=== PATIENT | female | born 1995 | race African-American/Black ===

== ENCOUNTER 2017-09-28 19:51 | Emergency (ER) | payer OTHER ==
[2017-09-28 19:55] VITALS: BP 126/61
--- NOTE | 2017-09-28 20:18 | PHYS DOC ---
Adult General Chief Complaint Chief Complaint: VAGINAL BLEEDING HPI HPI Patient is a 22 year old female who presents with complaint of vaginal bleeding during . Patient is proximal a 7 weeks with last menstrual period August 05, 2017. Patient states that over the past 2 weeks she has had intermittent spotting, however she started to develop bright red blood spotting over the past 2 days with associated cramping. Patient states that she had a previous miscarriage at 4 weeks gestation. Patient is currently following with a physician through [facility]. Patient states that she has had nausea and vomiting and has had decreased oral intake which she attributes to first trimester . Denies any fevers, shortness of breath , or chest pain. Patient denies any abnormal discharge. Review of Systems Review of Systems Constitutional: Denies fever or chills [] Eyes: Denies change in visual acuity, redness, or eye pain [] HENT: Denies nasal congestion or sore throat [] Respiratory: Denies cough or shortness of breath [] Cardiovascular: Denies chest pain or edema[] GI: Nausea, vomiting, denies bloody stools or diarrhea [] : Vaginal bleeding, pelvic cramping[] Musculoskeletal: Denies back pain or joint pain [] Integument: Denies rash or skin lesions [] Neurologic: Denies headache, focal weakness or sensory changes [] All other systems were reviewed and found to be within normal limits, except as documented in this note. Current Medications Current Medications Current Medications Medications (Trade) Dose Ordered Sig/Sierra Start Time Stop Time Status Last Admin Dose Admin Sodium Chloride 1,000 ml @ 1,000 mls/hr Q1H 09/28/17 20:01 09/28/17 21:00 UNV Physical Exam Physical Exam Constitutional: Alert, afebrile, no acute distress. [] HENT: Normocephalic, atraumatic, bilateral external ears normal, oropharynx moist, no oral exudates, nose normal. [] Eyes: PERRLA, EOMI, conjunctiva normal, no discharge. [] Neck: Normal range of motion, no tenderness, supple, no stridor. [] Cardiovascular:Heart rate regular rhythm, no murmur [] Lungs & Thorax: Bilateral breath sounds clear to auscultation [] Abdomen: Bowel sounds normal, soft, no tenderness, no masses, no pulsatile masses. Pelvic: Normal external exam, scant amount of red blood at the cervical os, small amount of yellow purulent discharge in vaginal canal, cervical os is closed, no cervical motion tenderness, midline tenderness on bimanual exam, no adnexal tenderness.[] Skin: Warm, dry, no erythema, no rash. [] Back: No tenderness, no CVA tenderness. [] Extremities: No tenderness, no cyanosis, no clubbing, ROM intact, no edema. [] Neurologic: Alert and oriented X 3, normal motor function, normal sensory function, no focal deficits noted. [] Current Patient Data Vital Signs Vital Signs Date Time Temp Pulse Resp B/P (MAP) Pulse Ox O2 Delivery O2 Flow Rate FiO2 09/28/17 19:55 98.0 61 16 100 Room Air Lab Results Laboratory Tests Test 09/28/17 20:20 White Blood Count 5.7 x10^3/uL Red Blood Count 4.34 x10^6/uL Hemoglobin 13.2 g/dL Hematocrit 38.3 % Mean Corpuscular Volume 88 fL Mean Corpuscular Hemoglobin 30 pg Mean Corpuscular Hemoglobin Concent 35 g/dL Red Cell Distribution Width 13.3 % Platelet Count 227 x10^3/uL Neutrophils (%) (Auto) 60 % Lymphocytes (%) (Auto) 32 % Monocytes (%) (Auto) 7 % Eosinophils (%) (Auto) 1 % Basophils (%) (Auto) 1 % Neutrophils # (Auto) 3.4 x10^3uL Lymphocytes # (Auto) 1.8 x10^3/uL Monocytes # (Auto) 0.4 x10^3/uL Eosinophils # (Auto) 0.1 x10^3/uL Basophils # (Auto) 0.0 x10^3/uL Maternal Serum HCG Beta Subunit 281299 mIU/mL Sodium Level 136 mmol/L Potassium Level 3.5 mmol/L Chloride Level 101 mmol/L Carbon Dioxide Level 28 mmol/L Anion Gap 7 Blood Urea Nitrogen 5 mg/dL Creatinine 0.7 mg/dL Estimated GFR (Cockcroft-Gault) 126.6 Glucose Level 83 mg/dL Calcium Level 9.3 mg/dL Magnesium Level 1.9 mg/dL Total Bilirubin 0.8 mg/dL Direct Bilirubin 0.1 mg/dL Aspartate Amino Transf (AST/SGOT) 14 U/L Alanine Aminotransferase (ALT/SGPT) 16 U/L Alkaline Phosphatase 71 U/L Total Protein 8.0 g/dL Albumin 3.6 g/dL Current Medications Medications (Trade) Dose Ordered Sig/Sierra Route PRN Reason Start Time Stop Time Status Last Admin Dose Admin Sodium Chloride 1,000 ml @ 1,000 mls/hr Q1H IV 09/28/17 21:00 09/28/17 21:59 09/28/17 21:00 Ceftriaxone Sodium (Rocephin Im) 250 mg 1X ONCE IM 09/28/17 21:00 09/28/17 21:01 DC 09/28/17 21:20 Metoclopramide HCl (Reglan Vial) 10 mg 1X ONCE IV 09/28/17 21:00 09/28/17 21:01 DC 09/28/17 21:19 Azithromycin (Zithromax) 1,000 mg 1X ONCE PO 09/28/17 21:00 09/28/17 21:01 DC 09/28/17 21:20 EKG EKG Not performed[] Radiology/Procedures Radiology/Procedures Limited transabdominal bedside ultrasound performed and interpreted by myself: Intrauterine , visualized pole, heart rate 145 bpm, small subchorionic hemorrhage, no adnexal masses[] Course & Med Decision Making Course & Med Decision Making Pertinent Labs and Imaging studies reviewed. (See chart for details) Patient was given IV fluids and Reglan in the emergency department. Due to possibility of presence of abnormal vaginal discharge, the patient was administered Rocephin and azithromycin in the emergency department. Instructed patient to follow-up with gonorrhea and chlamydia cultures and stated if they were positive she would need to inform any sexual partners that they would need to be tested and treated as well. The patient was discharged with prescription for MetroGel for treatment of bacterial vaginosis. Advised follow-up with OB doctor in the next 3 days for reevaluation and repeat quantitative hCG testing. Advised return to emergency department for any worsening symptoms. Patient was understanding and agreement with treatment plan.[] Dragon Disclaimer Dragon Disclaimer This electronic medical record was generated, in whole or in part, using a voice recognition dictation system. Departure Departure: Impression: Primary Impression: Threatened miscarriage Additional Impression: Bacterial vaginosis Disposition: HOME, SELF-CARE Condition: IMPROVED Referrals: EMMANUEL MARTINEZ PA-C (PCP) Patient Instructions: Threatened Miscarriage Additional Instructions: Your quantitative hCG level today was 131,396. You will need to follow-up with your OB doctor in 3 days to have this rechecked. Return to the emergency department for any worsening symptoms. Scripts Metronidazole (METROGEL-VAGINAL) 70 Gm Gel.w.appl 1 APPFUL [facility], #70 GM Prov: МАРИЯ RODGERS MD 09/28/17 Problem Qualifiers МАРИЯ RODGERS MD Sep 28, 2017 20:18
[2017-09-28 20:50] LABS: BASO % 1 % (0-3); EOS # 0.1 x10^3/uL (0.0-0.7); EOS % 1 % (0-3); HEMATOCRIT 38.3 % (36.0-47.0); HEMOGLOBIN 13.2 g/dL (12.0-15.5); LYMPH # 1.8 x10^3/uL (1.0-4.8); LYMPH % 32 % (24-48); MEAN CORPUSCULAR HEMOGLOBIN 30 pg (25-35); MEAN CORPUSCULAR HGB CONC 35 g/dL (31-37); MEAN CORPUSCULAR VOLUME 88 fL (79-100); MONO # 0.4 x10^3/uL (0.0-1.1); MONO % 7 % (0-9); NEUT # 3.4 x10^3uL (1.8-7.7); NEUT % 60 % (31-73); PLATELET COUNT 227 x10^3/uL (140-400); RED BLOOD COUNT 4.34 x10^6/uL (3.50-5.40); RED CELL DISTRIBUTION WIDTH 13.3 % (11.5-14.5); WHITE BLOOD COUNT 5.7 x10^3/uL (4.0-11.0)
[2017-09-28] MEDS ORDERED: AZITHROMYCIN 250 MG TABLET. PO ONE (21:00)
[2017-09-28] MEDS ORDERED: IV NORMAL SALINE 1,000ML 1,000 ML IV SCH (21:00)
[2017-09-28] MEDS ORDERED: METOCLOPRAMIDE HCL 10 MG/2 ML VIAL. IV ONE (21:00)
[2017-09-28] MEDS ORDERED: cefTRIAXone IM 250 MG VIAL IM ONE (21:00)
[2017-09-28 21:02] LABS: ALBUMIN 3.6 g/dL (3.4-5.0); CALCIUM 9.3 mg/dL (8.5-10.1); CREATININE 0.7 mg/dL (0.6-1.0); DIRECT BILIRUBIN 0.1 mg/dL (0.0-0.2); GFR 126.6; MAGNESIUM 1.9 mg/dL (1.8-2.4); POTASSIUM 3.5 mmol/L (3.5-5.1); TOTAL BILIRUBIN 0.8 mg/dL (0.2-1.0)
[2017-09-28] MEDS ORDERED: METR70GE14 VG (21:57)
[2017-09-28 22:13] LABS: BACTERIA,URINE MANY /HPF (0-FEW); BILIRUBIN,URINE NEG (NEG); CLARITY,URINE HAZY; COLOR,URINE YELLOW; GLUCOSE,URINE NEG (NEG); NITRITE,URINE POS (NEG); RBC,URINE RARE /HPF (0-2); SQUAMOUS EPITHELIAL CELL,UR FEW /LPF; UROBILINOGEN,URINE 1 mg/dL (0.2 mg/dL)
[2017-09-30 15:08] LABS: CHLAMYDIA PROBE Negative (Negative)
== END 2017-09-28 22:08 | disposition home or self-care (01) ==
LOC: ER 19:51
DX: O20.0 Threatened abortion (principal); O21.9 Vomiting of pregnancy, unspecified; O23.591 Infection of other part of genital tract in pregnancy, first trimester; N76.0 Acute vaginitis; B96.89 Other specified bacterial agents as the cause of diseases classified elsewhere; Z3A.01 Less than 8 weeks gestation of pregnancy
CPT/HCPCS: 36415; 80048; 80076; 81001; 83735; 84702; 85025; 86850; 86900; 86901; 87086; 87491; 87591; 96361; 96372; 96374; 99285; J0456; J0696; J2765; Q0111; J7030

== ENCOUNTER 2017-11-09 10:33 | Emergency (ER) | payer OTHER ==
[~2017-11-09] VITALS: Ht 157.5 cm; Wt 56.7 kg
[~2017-11-09 10:33] MED LIST: METR70GE14 VG
[2017-11-09 11:29] LABS: BACTERIA,URINE MOD /HPF (0-FEW); BILIRUBIN,URINE NEG (NEG); CLARITY,URINE HAZY; COLOR,URINE YELLOW; GLUCOSE,URINE NEG (NEG); NITRITE,URINE NEG (NEG); RBC,URINE RARE /HPF (0-2); SQUAMOUS EPITHELIAL CELL,UR MANY /LPF; UROBILINOGEN,URINE 0.2 mg/dL (0.2 mg/dL); WBC,URINE OCC /HPF (0-4)
[2017-11-09 11:30] LABS: AMORPHOUS SEDIMENT,UR PRESENT /HPF
[2017-11-09 12:14] VITALS: BP 122/65
--- NOTE | 2017-11-09 12:41 | RAD ---
Early OB ultrasound History: Pelvic pain. Comparison: None. Technique: Transabdominal imaging was performed. Findings: Single live intrauterine is identified with gestational sac and fetus seen. No subchorionic hemorrhage is identified. Gestational sac appears regular. Embryonic heart motion is 150 bpm. Mean crown-rump length is 7.10 cm corresponding to 13 weeks 2 days. BPD is 2.14 cm corresponding to 13 weeks 3 days. HC is 8.17 cm, corresponding to 13 weeks 4 days. FL is 1.06 cm corresponding to 13 weeks 1 day. Average ultrasound age is 13 weeks 3 days. Estimated date of delivery is May 14, 2018. Cervical length is 3.76 cm. Right ovary measures 5.1 x 2.3 x 2.4 cm. Impression: 1. Single live intrauterine . Average ultrasound age is 13 weeks 3 days. Estimated date of delivery is May 14, 2018. Electronically signed by: Lopez Farley MD (11/09/2017 12:37 PM) [email or web address]
--- NOTE | 2017-11-09 17:09 | ED.ADGEN ---
Past History Past Medical History: No Pertinent History Past Surgical History: No Surgical History Alcohol Use: None Drug Use: None Adult General Chief Complaint Chief Complaint Suprapubic pain [facility] HPI Patient is a 22-year-old -Filipino female G1, P0, estimated 15 weeks gestation who presents with suprapubic pain, cramping. Pain is described as sharp, intermittent and nonradiating. This radiated is 2. Is worse with position change. No nausea vomiting fever chills or sweats. No right lower quadrant pain, tenderness, flank pain, urinary frequency urgency or dysuria. No hematuria. No vaginal discharge, vaginal bleeding, fluid leak or pain. Reports significant constipation. Patient took an enema prior to ED arrival with some relief of symptoms. No other acute symptoms or complaints.] Review of Systems Review of Systems ROS as per HPI. All other systems were reviewed and found to be within normal limits, except as documented in this note. Allergies Allergies Allergies Coded Allergies Type Severity Reaction Last Updated Verified No Known Drug Allergies 09/28/17 No Physical Exam Physical Exam Constitutional: Well developed, well nourished, no acute distress. [] HENT: Normocephalic, atraumatic, bilateral external ears normal, oropharynx moist, nose normal. [] Eyes: PERRLA, EOMI, conjunctiva normal. [] Neck: Normal range of motion. [] Cardiovascular:Heart rate regular rhythm, no murmur [] Lungs & Thorax: Bilateral breath sounds clear to auscultation [] Abdomen: Bowel sounds normal, soft, rapid abdomen, mild suprapubic pain, tenderness. No right lower quadrant pain or tenderness.. [] Skin: Warm, dry. [] Back: No tenderness. [] Extremities: No tenderness, no cyanosis, no clubbing, ROM intact, no edema. [] Neurologic: Alert and oriented X 3, normal motor function, normal sensory function, no focal deficits noted. [] Psychologic: Affect normal, judgement normal, mood normal. [] Current Patient Data Vital Signs Vital Signs Date Time Temp Pulse Resp B/P (MAP) Pulse Ox O2 Delivery O2 Flow Rate FiO2 11/09/17 12:14 60 16 122/65 (84) 98 Room Air 11/09/17 10:55 98.5 Lab Results Laboratory Tests Test 11/09/17 11:10 Urine Collection Type Unknown Urine Color Yellow Urine Clarity Hazy Urine pH 6.0 Urine Specific [place] 1.025 Urine Protein Neg (NEG-TRACE) Urine Glucose (UA) Neg mg/dL (NEG) Urine Ketones (Stick) Neg mg/dL (NEG) Urine Blood Neg (NEG) Urine Nitrite Neg (NEG) Urine Bilirubin Neg (NEG) Urine Urobilinogen Dipstick 0.2 mg/dL (0.2 mg/dL) Urine Leukocyte Esterase Neg (NEG) Urine RBC Rare /HPF (0-2) Urine WBC Occ /HPF (0-4) Urine Squamous Epithelial Cells Many /LPF Urine Amorphous Sediment Present /HPF Urine Bacteria Mod /HPF (0-FEW) Urine Mucus Slight /LPF EKG EKG [] Radiology/Procedures Radiology/Procedures [OB US: Viable IUP] Course & Med Decision Making Course & Med Decision Making Pertinent Labs and Imaging studies reviewed. (See chart for details) [Please, mild, ultrasound reassuring. Discussed with patient possibility of early appendicitis. Return precautions reviewed. Will treat constipation with OB /HOT PACKER follow-up. Patient verbalizes understanding agreement with discharge instructions.] Final Impression Final Impression [1. lower abdominal pain 2. Second trimester ] Dragon Disclaimer Dragon Disclaimer This electronic medical record was generated, in whole or in part, using a voice recognition dictation system. DORON PICHARDO DO Nov 09, 2017 17:09
== END 2017-11-09 12:15 | disposition home or self-care (01) ==
LOC: ER 10:33
DX: O26.892 Other specified pregnancy related conditions, second trimester (principal); R10.30 Lower abdominal pain, unspecified; Z3A.15 15 weeks gestation of pregnancy
CPT/HCPCS: 76801; 81001; 87086; 99285-25

== ENCOUNTER 2017-12-20 21:51 | Emergency (ER) | payer OTHER ==
[~2017-12-20] VITALS: Ht 154.9 cm; Wt 61.4 kg
[2017-12-20] MEDS: IV NORMAL SALINE 1,000ML 1,000 ML IV ONE (22:35)
[2017-12-20] MEDS: ONDANSETRON PF 4 MG/2 ML VIAL. IV ONE (22:47)
[2017-12-20 22:48] LABS: BASO % 0 % (0-3); EOS # 0.1 x10^3/uL (0.0-0.7); EOS % 1 % (0-3); HEMATOCRIT 34.8 % (36.0-47.0); HEMOGLOBIN 11.8 g/dL (12.0-15.5); LYMPH # 1.5 x10^3/uL (1.0-4.8); LYMPH % 22 % (24-48); MEAN CORPUSCULAR HEMOGLOBIN 30 pg (25-35); MEAN CORPUSCULAR HGB CONC 34 g/dL (31-37); MEAN CORPUSCULAR VOLUME 89 fL (79-100); MONO # 0.5 x10^3/uL (0.0-1.1); MONO % 7 % (0-9); NEUT # 4.9 x10^3uL (1.8-7.7); NEUT % 69 % (31-73); PLATELET COUNT 225 x10^3/uL (140-400); WHITE BLOOD COUNT 7.1 x10^3/uL (4.0-11.0)
--- NOTE | 2017-12-20 22:52 | PHYS DOC ---
Adult General Chief Complaint Chief Complaint Vomiting and diarrhea HPI HPI This is a very pleasant 22 years old female who is 20 weeks presented emergency department with nausea vomiting and diarrhea described as watery loose stool. No blood in the stool . Also complained of cramps in her abdomen all over her abdomen, no vaginal bleeding Review of Systems Review of Systems Constitutional: Denies fever or chills [] Eyes: Denies change in visual acuity, redness, or eye pain [] HENT: Denies nasal congestion or sore throat [] Respiratory: Denies cough or shortness of breath [] Cardiovascular: No additional information not addressed in HPI [] : Denies dysuria or hematuria [] Musculoskeletal: Denies back pain or joint pain [] Integument: Denies rash or skin lesions [] Neurologic: Denies headache, focal weakness or sensory changes [] Endocrine: Denies polyuria or polydipsia [] All other systems were reviewed and found to be within normal limits, except as documented in this note. Current Medications Current Medications Current Medications Medications (Trade) Dose Ordered Sig/Sierra Start Time Stop Time Status Last Admin Dose Admin Nalbuphine HCl (Nubain) 10 mg 1X ONCE 12/20/17 22:45 12/20/17 22:46 DC 12/20/17 23:04 10 MG Ondansetron HCl (Zofran) 4 mg 1X ONCE 12/20/17 22:45 12/20/17 22:46 DC 12/20/17 22:47 4 MG Sodium Chloride 1,000 ml @ 1,000 mls/hr 1X ONCE 12/20/17 22:30 12/20/17 23:29 DC 12/20/17 22:35 1,000 MLS/HR Allergies Allergies Allergies Coded Allergies Type Severity Reaction Last Updated Verified No Known Drug Allergies 09/28/17 No Physical Exam Physical Exam Constitutional: Well developed, well nourished, no acute distress, non-toxic appearance. [] HENT: Normocephalic, atraumatic, bilateral external ears normal, oropharynx moist, no oral exudates, nose normal. [] Eyes: PERRLA, EOMI, conjunctiva normal, no discharge. [] Neck: Normal range of motion, no tenderness, supple, no stridor. [] Cardiovascular:Heart rate regular rhythm, no murmur [] Lungs & Thorax: Bilateral breath sounds clear to auscultation [] Abdomen: Bowel sounds normal, soft, tenderness all over , no masses, no pulsatile masses. [] Skin: Warm, dry, no erythema, no rash. [] Back: No tenderness, no CVA tenderness. [] Extremities: No tenderness, no cyanosis, no clubbing, ROM intact, no edema. [] Neurologic: Alert and oriented X 3, normal motor function, normal sensory function, no focal deficits noted. [] Psychologic: Affect normal, judgement normal, mood normal. [] Current Patient Data Vital Signs Vital Signs Date Time Temp Pulse Resp B/P (MAP) Pulse Ox O2 Delivery O2 Flow Rate FiO2 12/20/17 23:04 20 100 Room Air 12/20/17 22:12 98.5 77 Lab Results Laboratory Tests Test 12/20/17 22:30 White Blood Count 7.1 x10^3/uL (4.0-11.0) Red Blood Count 3.90 x10^6/uL (3.50-5.40) Hemoglobin 11.8 g/dL (12.0-15.5) L Hematocrit 34.8 % (36.0-47.0) L Mean Corpuscular Volume 89 fL (79-100) Mean Corpuscular Hemoglobin 30 pg (25-35) Mean Corpuscular Hemoglobin Concent 34 g/dL (31-37) Red Cell Distribution Width 14.0 % (11.5-14.5) Platelet Count 225 x10^3/uL (140-400) Neutrophils (%) (Auto) 69 % (31-73) Lymphocytes (%) (Auto) 22 % (24-48) L Monocytes (%) (Auto) 7 % (0-9) Eosinophils (%) (Auto) 1 % (0-3) Basophils (%) (Auto) 0 % (0-3) Neutrophils # (Auto) 4.9 x10^3uL (1.8-7.7) Lymphocytes # (Auto) 1.5 x10^3/uL (1.0-4.8) Monocytes # (Auto) 0.5 x10^3/uL (0.0-1.1) Eosinophils # (Auto) 0.1 x10^3/uL (0.0-0.7) Basophils # (Auto) 0.0 x10^3/uL (0.0-0.2) Sodium Level 135 mmol/L (136-145) L Potassium Level 3.7 mmol/L (3.5-5.1) Chloride Level 102 mmol/L (98-107) Carbon Dioxide Level 24 mmol/L (21-32) Anion Gap 9 (6-14) Blood Urea Nitrogen 5 mg/dL (7-20) L Creatinine 0.6 mg/dL (0.6-1.0) Estimated GFR (Cockcroft-Gault) 151.3 BUN/Creatinine Ratio 8 (6-20) Glucose Level 86 mg/dL (70-99) Calcium Level 8.3 mg/dL (8.5-10.1) L Total Bilirubin 0.4 mg/dL (0.2-1.0) Aspartate Amino Transferase (AST) 14 U/L (15-37) L Alanine Aminotransferase (ALT) 21 U/L (14-59) Alkaline Phosphatase 89 U/L (46-116) Total Protein 7.0 g/dL (6.4-8.2) Albumin 2.8 g/dL (3.4-5.0) L Albumin/Globulin Ratio 0.7 (1.0-1.7) L Lipase 133 U/L (73-393) EKG EKG [] Radiology/Procedures Radiology/Procedures [] Course & Med Decision Making Course & Med Decision Making Pertinent Labs and Imaging studies reviewed. (See chart for details) [] Final Impression Final Impression Patient feels much better cramps resolved no vomiting emergency department she requested to be discharged home I advised her to follow up with her [employer] and primary doctor[] Problems: (1) Gastroenteritis Dragon Disclaimer Dragon Disclaimer This electronic medical record was generated, in whole or in part, using a voice recognition dictation system. GUANAKO CRUZ MD Dec 20, 2017 22:52
[2017-12-20 23:01] LABS: ALBUMIN 2.8 g/dL (3.4-5.0); ALBUMIN/GLOBULIN RATIO 0.7 (1.0-1.7); CALCIUM 8.3 mg/dL (8.5-10.1); CREATININE 0.6 mg/dL (0.6-1.0); GFR 151.3; POTASSIUM 3.7 mmol/L (3.5-5.1); TOTAL BILIRUBIN 0.4 mg/dL (0.2-1.0)
[2017-12-20] MEDS: NALBUPHINE 10 MG/ML AMPUL. IV ONE (23:04)
[2017-12-21] MEDS ORDERED: ONDA4TAB7 PO (00:24)
[2017-12-21 01:12] VITALS: BP 105/65
== END 2017-12-21 01:15 | disposition home or self-care (01) ==
LOC: ER 21:51
DX: O99.612 Diseases of the digestive system complicating pregnancy, second trimester (principal); K52.9 Noninfective gastroenteritis and colitis, unspecified; Z3A.20 20 weeks gestation of pregnancy
CPT/HCPCS: 36415; 80053; 83690; 85025; 96361; 96374; 96375; 99284; J2300; J2405; J7030

== ENCOUNTER 2018-01-18 11:45 | Emergency (ER) | payer OTHER ==
[~2018-01-18 11:45] MED LIST changes: +ONDA4TAB7 PO
[2018-01-18] MEDS ORDERED: IV NORMAL SALINE 1,000ML 1,000 ML IV SCH (12:16)
[2018-01-18 12:31] LABS: BARBITURATES NEG (NEG); BENZODIAZEPINES NEG (NEG); CANNABINOIDS NEG (NEG); COCAINE NEG (NEG); METHADONE NEG (NEG); OPIATES NEG (NEG); PHENCYCLIDINE NEG (NEG)
[2018-01-18 12:33] LABS: BILIRUBIN,URINE NEG (NEG); CLARITY,URINE HAZY; COLOR,URINE YELLOW; GLUCOSE,URINE NEG (NEG); NITRITE,URINE NEG (NEG); UROBILINOGEN,URINE 0.2 mg/dL (0.2 mg/dL)
[2018-01-18 12:34] LABS: BACTERIA,URINE FEW /HPF (0-FEW); RBC,URINE OCC /HPF (0-2); SQUAMOUS EPITHELIAL CELL,UR MOD /LPF
[2018-01-18 12:42] LABS: AMPHETAMINE/METHAMPHETAMINE NEG (NEG)
[2018-01-18 12:45] LABS: BASO # 0.1 x10^3/uL (0.0-0.2); BASO % 1 % (0-3); EOS # 0.1 x10^3/uL (0.0-0.7); EOS % 1 % (0-3); HEMATOCRIT 31.4 % (36.0-47.0); HEMOGLOBIN 10.5 g/dL (12.0-15.5); LYMPH # 1.4 x10^3/uL (1.0-4.8); LYMPH % 18 % (24-48); MEAN CORPUSCULAR HEMOGLOBIN 30 pg (25-35); MEAN CORPUSCULAR HGB CONC 34 g/dL (31-37); MEAN CORPUSCULAR VOLUME 89 fL (79-100); MONO # 0.5 x10^3/uL (0.0-1.1); MONO % 7 % (0-9); NEUT # 5.6 x10^3uL (1.8-7.7); NEUT % 73 % (31-73); PLATELET COUNT 225 x10^3/uL (140-400); RED BLOOD COUNT 3.52 x10^6/uL (3.50-5.40); RED CELL DISTRIBUTION WIDTH 13.7 % (11.5-14.5); WHITE BLOOD COUNT 7.7 x10^3/uL (4.0-11.0)
[2018-01-18] MEDS ORDERED: ONDANSETRON PF 4 MG/2 ML VIAL. IV ONE (12:45)
[2018-01-18 13:04] LABS: ALBUMIN 2.8 g/dL (3.4-5.0); ALBUMIN/GLOBULIN RATIO 0.8 (1.0-1.7); CALCIUM 8.1 mg/dL (8.5-10.1); CREATININE 0.6 mg/dL (0.6-1.0); GFR 151.3; POTASSIUM 3.9 mmol/L (3.5-5.1); TOTAL BILIRUBIN 0.4 mg/dL (0.2-1.0); TOTAL PROTEIN 6.5 g/dL (6.4-8.2)
--- NOTE | 2018-01-18 13:48 | RAD ---
Obstetrical ultrasound-limited, 01/18/2018: HISTORY: Abdominal pain There is a single intrauterine fetus in a cephalic orientation. The biparietal diameter measures 5.6 cm compatible with a gestational age of approximately 23 weeks. This corresponds well to the other measurements yielding a sonographic EDC of 05/16/2018. This correlates well with the EDC of 05/14/2018 established on the previous study of 11/09/2017. Normal activity and heart motion were seen. The heart rate was 141 bpm. A full survey was not performed at this time. A normal amount of amniotic fluid is present with the DOREEN calculated at 15. The placenta lies anteriorly. There is no evidence of a placenta previa. No periplacental hemorrhage is seen. The cervical length is 4.3 cm. IMPRESSION: Single viable intrauterine fetus of 23 weeks gestational age as described above, demonstrating normal interval growth since 11/09/2017. Electronically signed by: Scott Anthony MD (01/18/2018 1:45 PM) [facility]
--- NOTE | 2018-01-18 13:57 | PHYS DOC ---
Past History Past Medical History: No Pertinent History Past Surgical History: No Surgical History Alcohol Use: None Drug Use: None Adult General Chief Complaint Chief Complaint: ABDOMINAL PAIN IN HPI HPI Patient is a 22 year old female at 24 weeks of gestation who presents with complaining of lower abdominal pain and nausea and vomiting and dizziness. Patient states she has had nausea and vomiting since she became and usually has one or 2 episodes of vomiting a day but or the last or 2 days she had 14 episodes of vomiting every day. Patient complaining of intermittent episodes of lower abdominal aching pain with radiation to her back. Patient complaining of pain in her throat and generalized dizziness . Patient denies fever and chills, diarrhea and constipation, urinary symptoms, chest pain and shortness of breath, focal neuro deficit, headache, vaginal bleeding or discharge, contraction. Patient states she was seen by her WORKFORCE DEVELOPMENT ASSISTANT 1 week ago without having any problem. Review of Systems Review of Systems Constitutional: Denies fever or chills [] Eyes: Denies change in visual acuity, redness, or eye pain [] HENT: Denies nasal congestion or sore throat [] Respiratory: Denies cough or shortness of breath [] Cardiovascular: No additional information not addressed in HPI [] GI: Reports abdominal pain, nausea, vomiting, denies bloody stools or diarrhea [ ] : Denies dysuria or hematuria [] Musculoskeletal: Denies back pain or joint pain [] Integument: Denies rash or skin lesions [] Neurologic: Denies headache, focal weakness or sensory changes [] Endocrine: Denies polyuria or polydipsia [] All other systems were reviewed and found to be within normal limits, except as documented in this note. Current Medications Current Medications Current Medications Medications (Trade) Dose Ordered Sig/Sierra Start Time Stop Time Status Last Admin Dose Admin Ondansetron HCl (Zofran) 4 mg 1X ONCE 01/18/18 12:45 01/18/18 12:46 DC 01/18/18 12:33 4 MG Sodium Chloride 1,000 ml @ 1,000 mls/hr Q1H 01/18/18 12:16 01/18/18 13:15 DC 01/18/18 12:33 1,000 MLS/HR Allergies Allergies Allergies Coded Allergies Type Severity Reaction Last Updated Verified No Known Drug Allergies 09/28/17 No Physical Exam Physical Exam Constitutional: Well developed, well nourished, no acute distress, non-toxic appearance. [] HENT: Normocephalic, atraumatic, oropharynx moist, no oral exudates, nose normal. [] Eyes: PERRLA, EOMI, conjunctiva normal, no discharge. [] Neck: Normal range of motion, no tenderness, supple, no stridor. [] Cardiovascular:Heart rate regular rhythm, no murmur [] Lungs & Thorax: Bilateral breath sounds clear to auscultation [] Abdomen: Bowel sounds normal, soft, no tenderness, no masses, no pulsatile masses, gravid abdomen without contraction, heart rate 140. [] Skin: Warm, dry, no erythema, no rash. [] Back: No tenderness, no CVA tenderness. [] Extremities: No tenderness, no cyanosis, no clubbing, ROM intact, no edema. [] Neurologic: Alert and oriented X 3, normal motor function, normal sensory function, no focal deficits noted. [] Psychologic: Affect normal, judgement normal, mood normal. [] Current Patient Data Vital Signs Vital Signs Date Time Temp Pulse Resp B/P (MAP) Pulse Ox O2 Delivery O2 Flow Rate FiO2 01/18/18 11:45 97.9 86 16 95 Room Air Lab Results Laboratory Tests Test 01/18/18 12:04 01/18/18 12:27 Urine Collection Type Void Urine Color Yellow Urine Clarity Hazy Urine pH 6.0 Urine Specific [place] >=1.030 Urine Protein Trace (NEG-TRACE) Urine Glucose (UA) Neg mg/dL (NEG) Urine Ketones (Stick) Trace mg/dL (NEG) Urine Blood Neg (NEG) Urine Nitrite Neg (NEG) Urine Bilirubin Neg (NEG) Urine Urobilinogen Dipstick 0.2 mg/dL (0.2 mg/dL) Urine Leukocyte Esterase Neg (NEG) Urine RBC Occ /HPF (0-2) Urine WBC 1-4 /HPF (0-4) Urine Squamous Epithelial Cells Mod /LPF Urine Bacteria Few /HPF (0-FEW) Urine Mucus Mod /LPF Urine Opiates Screen Neg (NEG) Urine Methadone Screen Neg (NEG) Urine Barbiturates Neg (NEG) Urine Phencyclidine Screen Neg (NEG) Urine Amphetamine/Methamphetamine Neg (NEG) Urine Benzodiazepines Screen Neg (NEG) Urine Cocaine Screen Neg (NEG) Urine Cannabinoids Screen Neg (NEG) Urine Ethyl Alcohol Neg (NEG) White Blood Count 7.7 x10^3/uL (4.0-11.0) Red Blood Count 3.52 x10^6/uL (3.50-5.40) Hemoglobin 10.5 g/dL (12.0-15.5) L Hematocrit 31.4 % (36.0-47.0) L Mean Corpuscular Volume 89 fL (79-100) Mean Corpuscular Hemoglobin 30 pg (25-35) Mean Corpuscular Hemoglobin Concent 34 g/dL (31-37) Red Cell Distribution Width 13.7 % (11.5-14.5) Platelet Count 225 x10^3/uL (140-400) Neutrophils (%) (Auto) 73 % (31-73) Lymphocytes (%) (Auto) 18 % (24-48) L Monocytes (%) (Auto) 7 % (0-9) Eosinophils (%) (Auto) 1 % (0-3) Basophils (%) (Auto) 1 % (0-3) Neutrophils # (Auto) 5.6 x10^3uL (1.8-7.7) Lymphocytes # (Auto) 1.4 x10^3/uL (1.0-4.8) Monocytes # (Auto) 0.5 x10^3/uL (0.0-1.1) Eosinophils # (Auto) 0.1 x10^3/uL (0.0-0.7) Basophils # (Auto) 0.1 x10^3/uL (0.0-0.2) Sodium Level 135 mmol/L (136-145) L Potassium Level 3.9 mmol/L (3.5-5.1) Chloride Level 101 mmol/L (98-107) Carbon Dioxide Level 26 mmol/L (21-32) Anion Gap 8 (6-14) Blood Urea Nitrogen 8 mg/dL (7-20) Creatinine 0.6 mg/dL (0.6-1.0) Estimated GFR (Cockcroft-Gault) 151.3 BUN/Creatinine Ratio 13 (6-20) Glucose Level 78 mg/dL (70-99) Calcium Level 8.1 mg/dL (8.5-10.1) L Total Bilirubin 0.4 mg/dL (0.2-1.0) Aspartate Amino Transferase (AST) 15 U/L (15-37) Alanine Aminotransferase (ALT) 18 U/L (14-59) Alkaline Phosphatase 87 U/L (46-116) Total Protein 6.5 g/dL (6.4-8.2) Albumin 2.8 g/dL (3.4-5.0) L Albumin/Globulin Ratio 0.8 (1.0-1.7) L Lipase 80 U/L (73-393) EKG EKG [] Radiology/Procedures Radiology/Procedures [address] [address] IMAGING REPORT Signed PATIENT: BARTOLO LAWSON ACCOUNT: [id number] : 1995 LOCATION: ER AGE: 22 SEX: F EXAM STATUS: REG ER ORD. PHYSICIAN: PARESH NGUYEN MD REASON: abdominal pain PROCEDURE: PREG MORE THAN OR EQ TO 14 WKS Obstetrical ultrasound-limited, 01/18/2018: HISTORY: Abdominal pain There is a single intrauterine fetus in a cephalic orientation. The biparietal diameter measures 5.6 cm compatible with a gestational age of approximately 23 weeks. This corresponds well to the other measurements yielding a sonographic EDC of 05/16/2018. This correlates well with the EDC of 05/14/2018 established on the previous study of 11/09/2017. Normal activity and heart motion were seen. The heart rate was 141 bpm. A full survey was not performed at this time. A normal amount of amniotic fluid is present with the DOREEN calculated at 15. The placenta lies anteriorly. There is no evidence of a placenta previa. No periplacental hemorrhage is seen. The cervical length is 4.3 cm. IMPRESSION: Single viable intrauterine fetus of 23 weeks gestational age as described above, demonstrating normal interval growth since 11/09/2017. Electronically signed by: Scott Anthony MD (01/18/2018 1:45 PM) [facility] DICTATED AND SIGNED BY: SCOTT ANTHONY MD DATE: 01/18/18 4209 CC: EMMANUEL MARTINEZ PA-C; PARESH NGUYEN MD ~ Course & Med Decision Making Course & Med Decision Making Pertinent Labs and Imaging studies reviewed. (See chart for details) Evaluation of patient in ER showed 22-year-old male patient G1 at 24 weeks of gestation frequent emergency room visits and complaining of lower abdominal pain and nausea and vomiting and dizziness. Patient had unremarkable physical exam and orthostatic vitals and labs. Patient did not have a constant traction and had unremarkable OB ultrasound. Patient treated with IV fluid and Zofran and tolerated oral intake and instructed to follow with her WORKFORCE DEVELOPMENT ASSISTANT today for heart rate monitoring. Dragon Disclaimer Dragon Disclaimer This electronic medical record was generated, in whole or in part, using a voice recognition dictation system. Departure Departure: Impression: Primary Impression: Abdominal pain affecting Additional Impressions: Hyperemesis gravidarum Dizziness Disposition: HOME, SELF-CARE (@1356) Condition: IMPROVED Referrals: EMMANUEL MARTINEZ PA-C (PCP) Patient Instructions: Abdominal Pain During , Diet - Hyperemesis Gravidarum, Dizziness, Hyperemesis Gravidarum Additional Instructions: Follow-up with your WORKFORCE DEVELOPMENT ASSISTANT today Drink plenty of liquids Follow-up with your primary care physician in 3-5 days Return to ER if not getting better Problem Qualifiers PARESH NGUYEN MD Jan 18, 2018 13:57
[2018-01-18 14:12] VITALS: BP 94/41
== END 2018-01-18 14:19 | disposition home or self-care (01) ==
LOC: ER 11:45
DX: O21.0 Mild hyperemesis gravidarum (principal); R42 Dizziness and giddiness; R10.30 Lower abdominal pain, unspecified; Z3A.24 24 weeks gestation of pregnancy
CPT/HCPCS: 36415; 76805; 80053; 80307; 81001; 83690; 85025; 96361; 96374; 99284; J2405; J7030